=== PATIENT | male | born 2000 | race Caucasian/White ===

== ENCOUNTER 2021-06-11 01:30 | Emergency (ER) | payer OTHER ==
[~2021-06-11] VITALS: Ht 193 cm; Wt 90.9 kg
[2021-06-11 01:58] VITALS: BP 111/44
== END 2021-06-11 03:03 | disposition home or self-care (01) ==
LOC: ER 01:32
DX: T25.021A Burn of unspecified degree of right foot, initial encounter (principal); R20.0 Anesthesia of skin; X58.XXXA Exposure to other specified factors, initial encounter; Y93.89 Activity, other specified; Y92.89 Other specified places as the place of occurrence of the external cause; Y99.8 Other external cause status
CPT/HCPCS: 99282